=== PATIENT | male | born 1970 | race Caucasian/White ===

== ENCOUNTER 2023-06-01 14:53 | Emergency (ER) | payer OTHER, SELFPAY ==
[2023-06-01 15:11] VITALS: BP 126/85; PULSE 89; RESP 18; TEMP 36.5; O2SAT 98
--- NOTE | 2023-06-01 15:21 | ED.EAR ---
HPI - Ear Problem General Chief complaint: Ear Stated complaint: painful ears,head pressure Time Seen by Provider: 06/01/23 15:15 Source: patient Mode of arrival: ambulatory Limitations: no limitations History of Present Illness HPI Narrative: Cesar is a 52-year-old male patient presenting to the clinic today with complaints of ear pain/pressure, decrease in hearing, and ringing in the ears times almost 2 weeks. He reports no known fever chills. Does not feel like he has any sinus congestion currently. Denies headache or dizziness. Related Data Home Medications Medication Instructions Recorded Confirmed meloxicam 15 mg tablet 15 mg PO DAILY 06/01/23 06/01/23 Allergies Allergy/AdvReac Type Severity Reaction Status Date / Time No Known Allergies Allergy Verified 06/01/23 15:14 Review of Systems Review of Systems: Pertinent positives per HPI. Patient denies any fever, chills, rash, headache, visual changes, dizziness, cough, shortness of breath, chest pain, palpitations, nausea, vomiting, diarrhea, constipation, abdominal pain, or any urinary issues. PMFSH Comments At the time of my signature, I reviewed and agree with the nursing past medical, surgical, social, and family history. There is no relevant family history pertinent to the patient complaint. Exam Narrative: General: Well-developed, well nourished, in no apparent distress Head: Normocephalic, atraumatic Eyes: Pupils equally round and reactive to light bilaterally, EOM intact, sclera and conjunctive clear, no discharge, lids normal Ears: TMs intact, mild bulging, with fluid noted behind the TM, ear canals clear, no drainage, grossly hearing normal. Nose: Nares patent, no discharge, no inflammation, no sinus tenderness. Mouth: Oral pharynx without lesions or masses, good dentition, MMM. Neck: Supple, trachea midline, no enlargement of anterior or posterior cervical nodes, no thyroid masses or goiter palpable. Cardio: Regular rate and rhythm, s1 and s2 normal, no murmur appreciated. Resp: Clear to auscultation bilaterally, no rhonchi, rales, wheezing or rubs Course Course Emergency Course: Portions of this record may have been created with voice recognition software. Level of Care: Express Care Visit Vital Signs Vital signs: Vital Signs Temperature 36.5 C 06/01/23 15:11 Pulse Rate 89 06/01/23 15:11 Respiratory Rate 18 06/01/23 15:11 Blood Pressure 126/85 06/01/23 15:11 Pulse Oximetry 98 06/01/23 15:11 Oxygen Delivery Room Air 06/01/23 15:11 Temperature 36.5 C 06/01/23 15:11 Pulse Rate 89 06/01/23 15:11 Respiratory Rate 18 06/01/23 15:11 Blood Pressure 126/85 06/01/23 15:11 Pulse Oximetry 98 06/01/23 15:11 Oxygen Delivery Room Air 06/01/23 15:11 Vital signs reviewed Medical Decision Making MDM Narrative Medical decision making narrative: At the time of visit patient is resting comfortably on the exam table. I suspect patient has eustachian tube dysfunction with serous otitis. Prescription for prednisone was sent to the pharmacy and supportive measures were discussed with the patient. Recommend follow-up with his PCP or ENT if symptoms persist. Differential Diagnosis Differential Diagnosis: Otitis media, otitis externa, eustachian tube dysfunction, cerumen impaction, Meniere's disease Vital Signs Vital Signs: Vital Signs Temperature 36.5 C 06/01/23 15:11 Pulse Rate 89 06/01/23 15:11 Respiratory Rate 18 06/01/23 15:11 Blood Pressure 126/85 06/01/23 15:11 Pulse Oximetry 98 06/01/23 15:11 Oxygen Delivery Room Air 06/01/23 15:11 Temperature 36.5 C 06/01/23 15:11 Pulse Rate 89 06/01/23 15:11 Respiratory Rate 18 06/01/23 15:11 Blood Pressure 126/85 06/01/23 15:11 Pulse Oximetry 98 06/01/23 15:11 Oxygen Delivery Room Air 06/01/23 15:11 Discharge Plan Discharge Clinical Impression: Acute serous otitis media, ETD (eustachian
== END 2023-06-01 15:32 | disposition home or self-care (01) ==
PROVIDERS: Emergency Provider Nurse Practitioner Family
DX: H65.03 Acute serous otitis media, bilateral (principal); H69.93 Unspecified Eustachian tube disorder, bilateral
CPT/HCPCS: 99203; G0463